=== PATIENT | female | born 1955 | race Two or more races ===

== ENCOUNTER 2017-09-14 17:02 | Emergency (ER) | payer OTHER ==
[~2017-09-14] VITALS: Ht 160 cm; Wt 88.6 kg
[2017-09-14 17:04] VITALS: BP 130/66
== END 2017-09-14 18:10 | disposition home or self-care (01) ==
LOC: ED 17:30
DX: R21 Rash and other nonspecific skin eruption (principal); I10 Essential (primary) hypertension; E11.9 Type 2 diabetes mellitus without complications
CPT/HCPCS: 99281

== ENCOUNTER 2019-01-20 09:41 | Day surgery (SDC) | payer OTHER ==
[2019-01-17 13:54] LABS: ALANINE AMINOTRANSFERASE 26 U/L (12-78); ALBUMIN 3.7 g/dL (3.4-5.0); ANION GAP 3 mmol/L (5-15); CALCIUM 9.1 mg/dL (8.5-10.1); CHLORIDE 108 mmol/L (98-107); CREATININE 0.69 mg/dL (0.55-1.02)
[2019-01-17 13:56] LABS: ALKALINE PHOSPHATASE 107 U/L (45-117); BILIRUBIN,TOTAL 0.4 mg/dL (0.2-1.0); TOTAL PROTEIN 7.6 g/dL (6.4-8.2)
[~2019-01-20] VITALS: Ht 165.1 cm; Wt 87.8 kg
[~2019-01-20 09:41] MED LIST: ATOR40TA78 PO; BUPIVACAINE/PF 0.5% ONE; EPINEPHRINE 1 MG/ML, 1ML ONE; LISI-167 PO; METF500T17 PO
[2019-01-20] MEDS ORDERED: MIDAZOLAM 1 MG/ML, 2ML ONE (09:57)
[2019-01-20] MEDS ORDERED: FENTANYL PF 100 MCG/2ML ONE (09:57)
[2019-01-20] MEDS ORDERED: LACTATED RINGERS 1,000 ML IV SCH (10:14)
[2019-01-20 10:15] VITALS: BP 160/89
[2019-01-20] MEDS ORDERED: ACETAMINOPHEN 500 MG TABLET PO ONE (10:30)
[2019-01-20] MEDS ORDERED: DEXAMETHASONE 4 MG/ML, 1ML ONE (10:46)
[2019-01-20] MEDS ORDERED: PROPOFOL 10 MG/ML, 20ML ONE (10:46)
[2019-01-20] MEDS ORDERED: CEFAZOLIN 1,000 MG ONE (10:46)
[2019-01-20] MEDS ORDERED: ONDANSETRON 2MG/ML, 2ML ONE (10:46)
[2019-01-20] MEDS ORDERED: OXYcodone 5 MG/5 ML ORAL.SOL UDC PO PRN (11:30)
[2019-01-20] MEDS ORDERED: FENTANYL PF 100 MCG/2ML IV PRN (11:30)
[2019-01-20] MEDS ORDERED: LORazepam 2 MG/ML, 1ML IVPush PRN (11:30)
[2019-01-20] MEDS ORDERED: ONDANSETRON 2MG/ML, 2ML IV PRN (11:30)
[2019-01-20] MEDS ORDERED: HYDROmorphone 2 MG/ML, 1ML IVPush PRN (11:30)
[2019-01-20] MEDS ORDERED: MEPERIDINE/PF 25MG/ML,1ML IVPush PRN (11:30)
== END 2019-01-20 12:50 | disposition home or self-care (01) ==
LOC: OUT 09:41
PROVIDERS: ATTEND Surgery
DX: D24.2 Benign neoplasm of left breast (principal); N64.52 Nipple discharge; N60.42 Mammary duct ectasia of left breast; N60.82 Other benign mammary dysplasias of left breast; I10 Essential (primary) hypertension; E11.9 Type 2 diabetes mellitus without complications; Z87.891 Personal history of nicotine dependence
CPT/HCPCS: 19125; 36415; 76098; 80053; 82962; 88305; 93005; J0171; J0690; J1100; J2250; J2405; J2704; J3010; J7120

== ENCOUNTER 2020-05-20 21:13 | Emergency (ER) | payer SELFPAY ==
[~2020-05-20] VITALS: Ht 165.1 cm; Wt 86.8 kg
[~2020-05-20 21:13] MED LIST changes: -BUPIVACAINE/PF 0.5% ONE; -EPINEPHRINE 1 MG/ML, 1ML ONE
[2020-05-20 21:16] VITALS: BP 175/87
[2020-05-20] MEDS ORDERED: DIPH,PERTUSS(ACELL),TET VAC/PF 0.5 ML IM-VACC ONE ×2 (21:30→21:37)
[2020-05-20] MEDS ORDERED: LIDOCAINE-MPF 1%, 5ML INFIL ONE (21:30)
[2020-05-20] MEDS ORDERED: LIDOCAINE-MPF 1%, 5ML ONE (21:37)
--- NOTE | 2020-05-20 21:56 | NUR ---
NANNETTEO PULLED FOR ERPA ADMIN. [employer] AT BEDSIDE FOR IRRIGATION.
[2020-05-20] MEDS ORDERED: NEOSPORIN OINT. PKT 1 PACKET ONE (21:57)
== END 2020-05-20 22:12 | disposition home or self-care (01) ==
LOC: ED 22:00
DX: S61.210A Laceration without foreign body of right index finger without damage to nail, initial encounter (principal); I10 Essential (primary) hypertension; F17.210 Nicotine dependence, cigarettes, uncomplicated; X58.XXXA Exposure to other specified factors, initial encounter; Y93.89 Activity, other specified; Y92.89 Other specified places as the place of occurrence of the external cause; Y99.8 Other external cause status
CPT/HCPCS: 12042; 90471; 90715; 99285; 99406